=== PATIENT | female | born 1995 | race Caucasian/White ===

== ENCOUNTER 2017-04-12 08:58 | Day surgery (SDC) | payer BC ==
[~2017-04-12 08:58] MED LIST: ANAPROX DS550 MG PO; CAMRESE 0.15-01 EACH PO; DEPO-PROVE150 MG/1 M IM; TRAMADOL HCL50 MG PO
[2017-04-12 10:02] LABS: HCT-HEMATOCRIT 40.3 % (34.0-49.0); HGB-HEMOGLOBIN 13.3 gm/dl (12.0-15.5); RED CELL DISTRIBUTION WIDTH 12.8 % (12.4-16.4)
== END 2017-04-12 13:50 ==
LOC: WSU 08:58 → SHSB 09:03 → ORW 11:01 → PACU 11:39 → SHSB 12:50
PROVIDERS: Obstetrics & Gynecology
PROC: 0U5F4ZZ Destruction of Cul-de-sac, Percutaneous Endoscopic Approach (ICD-10-PCS; principal; 2017-04-12)
PROC: 8E0W4CZ Robotic Assisted Procedure of Trunk Region, Percutaneous Endoscopic Approach (ICD-10-PCS; 2017-04-12)
DX: N80.3 Endometriosis of pelvic peritoneum (principal); Z88.8 Allergy status to other drugs, medicaments and biological substances; Z98.890 Other specified postprocedural states
CPT/HCPCS: J1170; J3010; J7030